=== PATIENT | male | born 1980 | race Caucasian/White ===

== ENCOUNTER 2016-11-20 11:14 | Emergency (ER) | payer SELFPAY ==
[2016-11-20 11:19] VITALS: BP 157/70; TEMP 97.7; BMI 27.3
[2016-11-20 12:37] LABS: BASOPHIL 0.5 % (0-2.0); EOSINOPHIL 4.1 % (0-4.5); MCH 31.9 pg (25.7-33.7); MCHC 34.3 g/dl (32.0-35.9); MEAN CELL VOLUME 93.1 fl (80-96); MEAN PLT VOLUME 9.4 fl (7.5-11.1); NEUTROPHILS 57.6 % (42.8-82.8); PLATELET COUNT 133 K/MM3 (134-434); RDW 13.5 % (11.9-15.9); WHITE BLOOD COUNT 4.7 K/mm3 (4.0-10.0)
--- NOTE | 2016-11-20 12:40 | PDOC ---
History of Present Illness - General Chief Complaint: CVA/TIA Stated Complaint: RT SIDE NUMBNESS Time Seen by Provider: 11/20/16 11:45 History Source: Patient Exam Limitations: No Limitations - History of Present Illness Initial Comments: 11/20/16 12:36 36 y/o male presents to the ED for evaluation of tingling to his right arm for the past 6 months intermittently which he describes as sharp pain to his inner bicep radiating to his right fourth and fifth digits. Patient denies weakness but states has intermittent paresthesia to his fingers. Patient also states intermittent paresthesia to his fourth and fifth digits of his toes but denies any weakness, skin discoloration, edema, or numbness as initially mentioned. Patient denies headache, dizziness, back pain, neck pain, skin discoloration, or swelling. 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 Patient states no medical history but used to use cocaine intranasally for years Severity: moderate Associated Symptoms: reports: denies symptoms Past History - Past Medical History Allergies/Adverse Reactions: Allergies Allergy/AdvReac Type Severity Reaction Status Date / Time No Known Allergies Allergy Verified 11/20/16 11:16 Home Medications: Ambulatory Orders Ibuprofen 600 mg PO Q6H PRN #30 tablet 02/06/16 - Psycho/Social/Smoking Cessation Hx Anxiety: No Suicidal Ideation: No Smoking History: Current some day smoker Number of Cigarettes Smoked Daily: 20 Information on smoking cessation initiated: No Hx Alcohol Use: Yes Drug/Substance Use Hx: Yes Substance Use Type: Alcohol, Cocaine Patient Lives Alone: Yes Lives with/in: lives alone Review of Systems - Review of Systems Constitutional: No: Symptoms Reported HEENTM: No: Symptoms Reported Respiratory: No: Symptoms reported Cardiac (ROS): No: Symptoms Reported ABD/GI: No: Symptoms Reported : No: Symptoms Reported Musculoskeletal: No: Symptoms Reported Integumentary: No: Symptoms Reported Neurological: Yes: Paresthesia, Tingling Endocrine: No: Symptoms Reported Hematologic/Lymphatic: No: Symptoms Reported *Physical Exam - Vital Signs Last Vital Signs Temp Pulse Resp BP Pulse Ox 97.7 F 59 L 18 157/70 99 11/20/16 11:16 11/20/16 11:16 11/20/16 11:16 11/20/16 11:16 11/20/16 11:16 - Physical Exam General Appearance: Yes: Nourished, Appropriately Dressed. No: Mild Distress HEENT: positive: EOMI, YOLETTE. negative: Pale Conjunctivae Neck: positive: Supple. negative: Tender, Decreased range of motion Respiratory/Chest: positive: Lungs Clear, Normal Breath Sounds. negative: Chest Tender, Respiratory Distress, Accessory Muscle Use Cardiovascular: positive: Regular Rhythm, Regular Rate. negative: Murmur Gastrointestinal/Abdominal: positive: Soft. negative: Tenderness Musculoskeletal: positive: Vertebral Tenderness. negative: CVA Tenderness Extremity: positive: Normal Capillary Refill, Normal Inspection, Normal Range of Motion, Tender (generalized right bicep, ) Integumentary: positive: Normal Color, Warm, Moist Neurologic: positive: Normal Mood/Affect, Motor Strength 5/5. negative: Sensory Deficit (not presently) Heart Score/ECG Review - ECG Intrepretation Rhythm: Regular Rhythm (sinus bradycardia of 52) ED Treatment Course - LABORATORY CBC & Chemistry Diagram: 11/20/16 12:19 11/20/16 12:19 - RADIOLOGY Radiology Studies Ordered: Category Date Time Status HEAD CT WITHOUT CONTRAST [CT] Stat CT Scan 11/20/16 12:09 Ordered Medical Decision Making - Medical Decision Making 11/20/16 12:40 Patient with intermittent tingling to right arm and right leg for the past 6 months. Patient states today is more painful than anything else and decided come to the ER. Patient arrival had no decrease weakness, paresthesia, or was concerning for neurological deficit. Patient was ordered for labs including magnesium, head CT and EKG. 11/20/16 13:[address] negative for acute findings. Patient states can follow-up with his PCP. Laboratory Tests 11/20/16 11/20/16 12:19 12:19 WBC 4.7 Hgb 16.0 Hct 46.8 Plt Count 133 L Neutrophils % 57.6 Monocytes % 12.7 H Sodium 142 Potassium 4.6 Chloride 105 Carbon Dioxide 28 Anion Gap 9 BUN 10 Creatinine 1.0 Random Glucose 82 Calcium 9.0 Magnesium 2.3 Total Bilirubin 2.8 H AST 33 ALT 42 *DC/Admit/Observation/Transfer Diagnosis at time of Disposition: Paresthesia of right upper and lower extremity - Discharge Dispostion Disposition: HOME Condition at time of disposition: Good - Referrals Referrals: Amilcar Vallejo MD [Staff Physician] - - Patient Instructions Printed Discharge Instructions: DI for Numbness/tingling Additional Instructions: At this point your labs and head CT showed no emergent workup but I do recommend you follow up with referred neurologist.
[2016-11-20 13:02] LABS: ALBUMIN 3.8 g/dl (3.4-5.0); ALK PHOS 76 U/L (45-117); ANION GAP 9 (8-16); BILIRUBIN,TOTAL 2.8 mg/dL (0.2-1.0); CO2 28 mmol/L (21-32); COCKROFT - GAULT 129.65; GLUCOSE,RANDOM 82 mg/dL (74-106); MAGNESIUM 2.3 mg/dL (1.8-2.4); SGOT/AST 33 U/L (15-37); SGPT/ALT 42 U/L (12-78); TOT PROT 6.9 g/dl (6.4-8.2)
[2016-11-20 13:55] VITALS: PULSE 60
--- NOTE | 2016-11-21 11:13 | EKG ---
Test Reason : Blood Pressure : / mmHG Vent. Rate : 052 BPM Atrial Rate : 052 BPM P-R Int : 138 ms QRS Dur : 080 ms QT Int : 426 ms P-R-T Axes : 041 057 040 degrees QTc Int : 396 ms SINUS BRADYCARDIA WITH SINUS ARRHYTHMIA OTHERWISE NORMAL ECG NO PREVIOUS ECGS AVAILABLE BASELINE ARTIFACT Confirmed by SIDDHARTH ANNE, TESSA ([id number]) on 11/21/2016 11:12:55 AM Referred By: Confirmed By:TESSA MESSINA MD
== END 2016-11-20 13:54 | disposition home or self-care (01) ==
LOC: JER 11:14
DX: R20.8 Other disturbances of skin sensation (principal)
CPT/HCPCS: 36415; 70450-TC; 80053; 83735; 85025; 93005; 93010; 99284-25

== ENCOUNTER 2017-06-13 11:01 | Emergency (ER) | payer SELFPAY ==
[2017-06-13 11:13] VITALS: BMI 26.9
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
[2017-06-13] MEDS ORDERED: SODIUM CHLORIDE 0.9% 500 ML INFUS.BAG IV ONE (13:07)
[2017-06-13] MEDS ORDERED: ACETAMINOPHEN 1000 MG/100 ML VIAL (NON FORMULARY) IVPB ONE (13:08)
[2017-06-13] MEDS ORDERED: ACETAMINOPHEN INJECTION 100 ML IVPB ONE (13:31)
[2017-06-13 13:42] LABS: PH,URINE 7.5 (5.0-8.0); URINE APPEARANCE CLEAR; URINE BILIRUBIN NEGATIVE (NEGATIVE); URINE BLOOD NEGATIVE (NEGATIVE); URINE COLOR LT. YELLOW; URINE GLUCOSE (UA) NEGATIVE (NEGATIVE); URINE KETONE NEGATIVE (NEGATIVE); URINE NITRITE NEGATIVE (NEGATIVE); URINE PROTEIN NEGATIVE (NEGATIVE); URINE UROBILINOGEN 0.2 mg/dL (0.2-1.0)
[2017-06-13 13:52] LABS: BASOPHIL 0.4 % (0-2.0); MCH 32.1 pg (25.7-33.7); MCHC 34.3 g/dl (32.0-35.9); MEAN CELL VOLUME 93.7 fl (80-96); MEAN PLT VOLUME 10.3 fl (7.5-11.1); NEUTROPHILS 60.4 % (42.8-82.8); PLATELET COUNT 140 K/MM3 (134-434); RDW 13.7 % (11.9-15.9); WHITE BLOOD COUNT 6.7 K/mm3 (4.0-10.0)
[2017-06-13 14:14] LABS: ALBUMIN 3.9 g/dl (3.4-5.0); ANION GAP 5 (8-16); BILIRUBIN,TOTAL 1.4 mg/dL (0.2-1.0); CALCIUM 9.1 mg/dL (8.5-10.1); CO2 31 mmol/L (21-32); GLUCOSE,RANDOM 75 mg/dL (74-106); SGOT/AST 23 U/L (15-37); SGPT/ALT 55 U/L (12-78); TOT PROT 7.3 g/dl (6.4-8.2)
[2017-06-13 14:15] LABS: ALK PHOS 90 U/L (45-117)
[2017-06-13] MEDS ORDERED: KETOROLAC TROMETHAMINE 15 MG/ML VIAL IVPUSH ONE (18:37)
[2017-06-13] MEDS ORDERED: KETOROLAC TROMETHAMINE 30 MG/1 ML VIAL ONE (18:45)
[2017-06-13 18:58] VITALS: BP 125/76; PULSE 73; TEMP 97.8
[2017-06-13 19:23] LABS: URINE LEUK ESTERASE Negative (NEGATIVE)
== END 2017-06-13 18:58 | disposition home or self-care (01) ==
LOC: JER 11:01
PROC: 3E033NZ Introduction of Analgesics, Hypnotics, Sedatives into Peripheral Vein, Percutaneous Approach (ICD-10-PCS; principal; 2017-06-13)
PROC: 3E0333Z Introduction of Anti-inflammatory into Peripheral Vein, Percutaneous Approach (ICD-10-PCS; 2017-06-13)
DX: K52.9 Noninfective gastroenteritis and colitis, unspecified (principal); F10.10 Alcohol abuse, uncomplicated; F14.10 Cocaine abuse, uncomplicated; F17.210 Nicotine dependence, cigarettes, uncomplicated
CPT/HCPCS: 36415; 74177-TC; 80053; 81003; 83690; 85025; 87086; 99284-25

== ENCOUNTER 2017-09-22 09:32 | Emergency (ER) | payer SELFPAY ==
[2017-09-22 09:44] VITALS: BP 121/63; PULSE 64; TEMP 98.4; BMI 26.9
[2017-09-22] MEDS ORDERED: MECLIZINE HCL 25 MG TABLET (FP) PO ONE (09:45)
[2017-09-22] MEDS ORDERED: MECLIZINE HCL 25 MG TABLET (FP) ONE (09:46)
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
== END 2017-09-22 11:04 | disposition home or self-care (01) ==
LOC: FER 09:32
DX: R42 Dizziness and giddiness (principal); F17.210 Nicotine dependence, cigarettes, uncomplicated
CPT/HCPCS: 70450-TC; 99282-25

== ENCOUNTER 2018-09-27 12:00 | Emergency (ER) | payer OTHER ==
[2018-09-27 12:19] VITALS: BP 111/72; PULSE 62; TEMP 97.7; BMI 26.4
[2018-09-27] MEDS ORDERED: LIDOCAINE 5% TOPICAL PATCH TP ONE (14:21)
[2018-09-27] MEDS ORDERED: KETOROLAC TROMETHAMINE 30 MG/1 ML VIAL IM ONE (14:21)
[2018-09-27] MEDS ORDERED: LIDOCAINE PATCH REMOVAL MC ONE (14:21)
--- NOTE | 2018-09-27 14:21 | PDOC ---
History of Present Illness <Marlene Gould - Last Filed: 09/27/18 15:09> - General History Source: Patient Exam Limitations: No Limitations - History of Present Illness Initial Comments: 09/27/18 15:08 HPI The patient is a 38 year old male with a significant past medical history of chronic back pain, alcohol and cocaine abuse who presents to the ED with 1 week of left sided neck pain, described as intermittent spasms. The patient notes his neck pain radiates from his ear down to his left shoulder and affects his lower and upper back. The patient notes his neck pain is triggered by his work and heavy lifting. The patient notes he put topical cream and took 2 tablets of advil approximately 3-4 times a day, with no relief. The patient notes he never experienced pain like this before. Denies additional trauma or falls. Allergies: NKDA Social history: Lives with family. No smoking. No alcohol. No illicit drugs. Surgical history: None reported. PCP: Dr. Tommie HARRISON Constitutional: no fever or chills. HEENT: no headache or dizziness. Gastrointestinal: no abdominal pain, nausea or vomiting. MUSCULOSKELETAL: (+) radiating neck pain. (+) back pain. No joint pain and swelling. No muscle aches. SKIN: no redness or skin changes, no discharge, no rash. No wounds. NEUROLOGIC: No headache, dizziness, LOC or altered mental status. No weakness, numbness or tingling. Allergic/Immunologic: no allergies All other systems reviewed and negative, or as documented in HPI. Physical EXAM: General: NAD, well appearing HEENT: NCAT, PERRL, EOMI. Neck: no C spine tenderness, supple Vascular: 2+ DP pulses symmetric and equal. Back:(+) left lower paraspinal lumbar tenderness. No c-spine tenderness. no midline tenderness, no stepoffs, FROM MSK: (+) full abduction of upper extremity. Able to internally and externally raise hand above elbow. Neuro : Proximal and distal strength 5/5, rivet tester strength 5/5 - equal and symmetric. Sensation grossly intact to light touch in all extrem.. Skin: Skin: color normal color, warm and well perfused. 2+ pulses throughout, 2 + radialis pulses. Cap refill <2 sec. 09/27/18 15:12 <Anjelica Amador - Last Filed: 09/27/18 15:12> - General Chief Complaint: Pain, Acute Stated Complaint: NECK Time Seen by Provider: 09/27/18 13:58 Past History <Marlene Gould - Last Filed: 09/27/18 15:09> - Past Medical History COPD: No - Suicide/Smoking/Psychosocial Hx Smoking History: Current some day smoker Have you smoked in the past 12 months: Yes Number of Cigarettes Smoked Daily: 2 Information on smoking cessation initiated: Yes 'Breaking Loose' booklet given: 09/22/17 Hx Alcohol Use: Yes (OCASIONAL) Drug/Substance Use Hx: No Substance Use Type: Alcohol, Cocaine <Anjelica Amador - Last Filed: 09/27/18 15:12> - Past Medical History Allergies/Adverse Reactions: Allergies Allergy/AdvReac Type Severity Reaction Status Date / Time No Known Allergies Allergy Verified 09/27/18 12:01 Home Medications: Ambulatory Orders Cyclobenzaprine HCl [Flexeril 10 mg] 10 mg PO TID PRN #15 tablet 09/27/18 Ibuprofen 600 mg PO QID PRN #20 tablet 09/27/18 Lidocaine 5% Patch [Lidoderm Patch -] 1 patch TP DAILY #7 patch 09/27/18 *Physical Exam - Vital Signs Last Vital Signs Temp Pulse Resp BP Pulse Ox 97.7 F 62 18 111/72 100 09/27/18 12:01 09/27/18 12:01 09/27/18 12:01 09/27/18 12:01 09/27/18 12:01 <Marlene Gould - Last Filed: 09/27/18 15:09> - Vital Signs Last Vital Signs Temp Pulse Resp BP Pulse Ox 97.7 F 62 18 111/72 100 09/27/18 12:01 09/27/18 12:01 09/27/18 12:01 09/27/18 12:01 09/27/18 12:01 <Anjelica Amador - Last Filed: 09/27/18 15:12> Moderate Sedation - Procedure Monitoring Vital Signs: Procedure Monitoring Vital Signs Temperature 97.7 F 09/27/18 12:01 Pulse Rate 62 09/27/18 12:01 Respiratory Rate 18 09/27/18 12:01 Blood Pressure 111/72 09/27/18 12:01 O2 Sat by Pulse Oximetry (%) 100 09/27/18 12:01 <Marlene Gould - Last Filed: 09/27/18 15:09> - Procedure Monitoring Vital Signs: Procedure Monitoring Vital Signs Temperature 97.7 F 09/27/18 12:01 Pulse Rate 62 09/27/18 12:01 Respiratory Rate 18 09/27/18 12:01 Blood Pressure 111/72 09/27/18 12:01 O2 Sat by Pulse Oximetry (%) 100 09/27/18 12:01 <Anjelica Amador - Last Filed: 09/27/18 15:12> ED Treatment Course - Medications Given in the ED: ED Medications Discontinued Medications Generic Name Dose Route Start Last Admin Trade Name Linda PRN Reason Stop Dose Admin Ketorolac Tromethamine 30 mg 09/27/18 14:21 09/27/18 15:00 Toradol Injection - IM 09/27/18 14:22 30 mg ONCE ONE Administration Lidocaine 1 patch 09/27/18 14:21 09/27/18 14:59 Lidoderm Patch - TP 09/27/18 14:22 1 patch ONCE ONE Administration <Marlene Gould - Last Filed: 09/27/18 15:09> Medical Decision Making - Medical Decision Making 09/27/18 15:11 hpi as documented VS wnl. no fever or systemic sx. neck pain, paracervical. no midline tenderness. no trauma. so doubt fx or spinal pathology. no neuro deficits likely spasm / strain with heavy lifting given analgesia, topical lidoderm rx meds prn, muscle relaxant, side effect profile reviewed supportive care, rest and phys activity as tolerated Pt informed of my clinical impression, treatment recommendations and disposition plan. All questions answered to patient's satisfaction and expressed understanding and comfort with this. Reasons for returning to the ED sooner discussed with the patient otherwise, follow up with primary care physician. At the time of discharge, the patient is alert, clinically improved, tolerating po and verbalizes understanding of instructions. Patient does not suffer from an acute life-threatening medical condition at this time she is safe for outpatient follow-up. <Anjelica Amador - Last Filed: 09/27/18 15:12> *DC/Admit/Observation/Transfer - Attestations Scribe Attestion: 09/27/18 15:09 Documentation prepared by Marlene Gould, acting as medical practice manager for Anjelica Amador MD, MD <Marlene Gould - Last Filed: 09/27/18 15:09> - Discharge Dispostion Decision to Admit order: No - Attestations Physician Attestion: 09/27/18 14:39 I, Anjelica Amador MD, attest that this document has been prepared under my direction and personally reviewed by me in its entirety. I further attest, that it accurately reflects all work, treatment, procedures and medical decision -making performed by me. <Anjelica Amador - Last Filed: 09/27/18 15:12> Diagnosis at time of Disposition: Acute cervical myofascial strain - Discharge Dispostion Disposition: HOME Condition at time of disposition: Stable - Prescriptions Prescriptions: Cyclobenzaprine HCl [Flexeril 10 mg] 10 mg PO TID PRN #15 tablet PRN Reason: Muscle Spasms Ibuprofen 600 mg PO QID PRN #20 tablet PRN Reason: Pain Lidocaine 5% Patch [Lidoderm Patch -] 1 patch TP DAILY #7 patch - Referrals Referrals: [facility] [place] [Provider Group] [facility] [Provider Group] - Patient Instructions Printed Discharge Instructions: DI for Cervical Muscle Strain Additional Instructions: you most likely have musculoskeletal strain of your neck and shoulder muscles avoid heavy lifting or strenuous activity rest and take tylenol as needed for mild to moderate pain. May take ibuprofen/tylenol as needed, over the counter. continue with range of motion exercises. Rest ice and elevate affected extremity Follow up with primary doctor/specialist services provided as well. orthopedics referrals given. This should heal over the next 3-5 days. Please take IBUPROFEN (aka MOTRIN, ADVIL, ALEVE) 400 mg and/or ACETAMINOPHEN ( aka Tylenol) 650-975 mg every 6 hours, as needed, for pain. Please do not take these medications if you have a bleeding disorder, stomach or GI ulcer problems or liver disease. flexeril is a muscle relaxant, take three times a day as needed may cause sleepiness, do not drive or operate machinery. topical lidoderm patch to the area affected, 12 hours on and 12 hours off.. - Post Discharge Activity Forms/Work/School Notes: Back to Work
[2018-09-27] MEDS ORDERED: LIDOCAINE 5% TOPICAL PATCH ONE (14:49)
[2018-09-27] MEDS ORDERED: KETOROLAC TROMETHAMINE 30 MG/1 ML VIAL ONE (14:49)
== END 2018-09-27 15:01 | disposition home or self-care (01) ==
LOC: FER 12:00
PROC: 3E0233Z Introduction of Anti-inflammatory into Muscle, Percutaneous Approach (ICD-10-PCS; principal; 2018-09-27)
DX: S16.1XXA Strain of muscle, fascia and tendon at neck level, initial encounter (principal); X58.XXXA Exposure to other specified factors, initial encounter; Y93.89 Activity, other specified; Y92.89 Other specified places as the place of occurrence of the external cause; G89.29 Other chronic pain; F10.10 Alcohol abuse, uncomplicated; F11.10 Opioid abuse, uncomplicated
CPT/HCPCS: 96372; 99282-25

== ENCOUNTER 2020-09-20 13:50 | Emergency (ER) | payer OTHER ==
[2020-09-20 14:15] VITALS: BP 126/69; PULSE 84; TEMP 97.5; BMI 26.0
[2020-09-20] MEDS ORDERED: SODIUM CHLORIDE 1,000 ML IV STA (14:38)
[2020-09-20] MEDS ORDERED: ONDANSETRON 4 MG/2 ML VIAL IVPUSH ONE (14:38)
[2020-09-20] MEDS ORDERED: ACETAMINOPHEN 1000 MG/100 ML VIAL (NON FORMULARY) IVPB ONE (14:38)
[2020-09-20] MEDS ORDERED: ACETAMINOPHEN INJECTION 100 ML IVPB ONE (16:10)
[2020-09-20] MEDS ORDERED: ONDANSETRON 4 MG/2 ML VIAL ONE (16:11)
[2020-09-20 16:24] LABS: BASO % 0.4 % (0-2.0); EOS % 4.1 % (0-4.5); HEMATOCRIT 44.2 % (35.4-49); HEMOGLOBIN 15.6 GM/dL (11.7-16.9); MCH 33.3 pg (25.7-33.7); MCHC 35.3 g/dl (32.0-35.9); MEAN CELL VOLUME 94.2 fl (80-96); MEAN PLT VOLUME 10.8 fl (7.5-11.1); MONO % 10.7 % (3.8-10.2); NEUT % 60.8 % (42.8-82.8); RBC 4.69 M/mm3 (4.00-5.60); RDW 13.7 % (11.9-15.9); WHITE BLOOD COUNT 5.7 K/mm3 (4.0-10.0)
[2020-09-20 16:28] LABS: URINE APPEARANCE CLEAR; URINE BILIRUBIN NEGATIVE (NEGATIVE); URINE COLOR YELLOW; URINE GLUCOSE (UA) NEGATIVE (NEGATIVE); URINE KETONE NEGATIVE (NEGATIVE); URINE LEUK ESTERASE NEGATIVE (NEGATIVE); URINE NITRITE NEGATIVE (NEGATIVE); URINE PROTEIN NEGATIVE (NEGATIVE); URINE UROBILINOGEN 0.2 mg/dL (0.2-1.0)
[2020-09-20 16:35] LABS: INR 0.95 (0.83-1.09); PROTHROMBIN TIME (PATIENT) 11.5 SEC (9.7-13.0)
[2020-09-20 16:43] LABS: POTASSIUM 4.5 mmol/L (3.5-5.1)
[2020-09-20 16:46] LABS: CALCIUM 9.2 mg/dL (8.5-10.1)
[2020-09-20 16:47] LABS: ALBUMIN 3.8 g/dl (3.4-5.0); BLOOD UREA NITROGEN 10.2 mg/dL (7-18)
[2020-09-20 16:51] LABS: BILIRUBIN,TOTAL 1.4 mg/dL (0.2-1); TOT PROT 7.3 g/dl (6.4-8.2)
[2020-09-20 17:11] LABS: PLATELET COUNT 168 K/MM3 (134-434); PLATELET ESTIMATE ADEQUATE
[2020-09-20] MEDS ORDERED: KETOROLAC TROMETHAMINE 30 MG/1 ML VIAL IVPUSH ONE (19:22)
[2020-09-20] MEDS ORDERED: KETOROLAC TROMETHAMINE 30 MG/1 ML VIAL ONE (19:29)
== END 2020-09-20 20:26 | disposition home or self-care (01) ==
LOC: JER 13:50
PROC: 3E033NZ Introduction of Analgesics, Hypnotics, Sedatives into Peripheral Vein, Percutaneous Approach (ICD-10-PCS; principal; 2020-09-20)
PROC: 3E033GC Introduction of Other Therapeutic Substance into Peripheral Vein, Percutaneous Approach (ICD-10-PCS; 2020-09-20)
PROC: 3E0337Z Introduction of Electrolytic and Water Balance Substance into Peripheral Vein, Percutaneous Approach (ICD-10-PCS; 2020-09-20)
PROC: 3E0333Z Introduction of Anti-inflammatory into Peripheral Vein, Percutaneous Approach (ICD-10-PCS; 2020-09-20)
DX: R10.9 Unspecified abdominal pain (principal)
CPT/HCPCS: 36415; 74177-TC; 80053; 81003; 83690; 85025; 85610; 87086; 99285-25; J0131; Q9967